=== PATIENT | male | born 1960 | race Caucasian/White ===

== ENCOUNTER 2020-11-12 11:15 | Emergency (ER) | payer OTHER, SELFPAY ==
[2020-11-12 11:25] VITALS: BP 173/107; PULSE 107; RESP 20; TEMP 36.6; O2SAT 100
--- NOTE | 2020-11-12 11:53 | ED.UPPEXIN ---
HPI - Extremity Injury (Upper) General Chief Complaint: Extremity Injury, Upper Stated Complaint: R WRIST INJURY Source: patient and RN notes reviewed Limitations: no limitations History of Present Illness HPI narrative: The right-handed patient, who has a history of psoriatic arthritis on Humira, presents with wrist pain. Patient has 1/2-week history of right, flexor wrist pain that is mild, worse with motion, better at rest. 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 No redness, known injury -there may be some slight swelling. Related Data Home Medications Medication Instructions Recorded Confirmed adalimumab 40 mg/0.8 mL See Rx Instructions SUB-Q .COMPLEX 05/21/20 05/21/20 subcutaneous syringe kit omeprazole 40 mg capsule,delayed 40 mg PO DAILY 05/21/20 05/21/20 release Allergies Allergy/AdvReac Type Severity Reaction Status Date / Time No Known Allergies Allergy Verified 05/21/20 14:04 Review of Systems Review of Systems: Narrative: General/Constitutional: No weight loss,fever Eyes: N0: Redness,discharge Ears/Nose/Throat: No: Epistaxis,ear discharge Respiratory: Denies: Hemoptysis Gastrointestinal: No Vomiting, Bleeding-rectal Skin: No Lumps, eruption Neurologic: No Focal Weakness,Sz Hematologic: Denies: Petechiae/Purpura Psychiatric: No: Suicida ideationl All Other Systems: Reviewed and Negative [facility] Surgical History Surgical History (Updated 05/21/20 @ 14:07 by Kayla Lauren, [facility]) Hx of cholecystectomy (~07/08/18) Family History Family History (Updated 06/25/18 @ 09:38 by DOCTOR UNKNOWN) Father Diabetes mellitus Family history of cardiovascular disease Mother Family history of dementia Family history of malignant melanoma Family history of malignant neoplasm of breast in first degree relative Other Cerebrovascular accident Family history of malignant neoplasm Family history of malignant neoplasm of breast Social History Social History Smoking status: Never smoker Alcohol intake: current Comments At time of signature, agree with nursing past medical, surgical, social and family history. There is no relevant family history pertinent to the presenting complaint Exam Narrative: Exam Narrative: General Appearance: Well appearing, , Conjunctiva clear Mouth/Throat: Normal appearing, Normal lips Neck: Supple Respiratory: Airway patent, No respiratory distress MS-wrist: Normal strength (mostly intact, limited flexion/extension by pain), Tenderness -with Tinel's; with mild decreased ROM, Scant flexor swelling Skin: Negative Ericka's; warm, Dry, Normal color Neurological: A&O x3, Normal affect Course Vital Signs Vital signs: Vital Signs Temperature 98 F 11/12/20 11:25 Pulse Rate 107 H 11/12/20 11:25 Respiratory Rate 11/12/20 11:25 Blood Pressure 173/107 H 11/12/20 11:25 Pulse Oximetry 100 11/12/20 11:25 Temperature 98 F 11/12/20 11:25 Pulse Rate 107 H 11/12/20 11:25 Respiratory Rate 11/12/20 11:25 Blood Pressure 173/107 H 11/12/20 11:25 Pulse Oximetry 100 11/12/20 11:25 Discharge Plan Discharge Clinical Impression: Tendinitis of right wrist Patient Disposition: Home, Self-Care Condition: Stable Instructions: Tendinitis (ED) Additional Instructions: Get and wear reinforced splint, especially at night Prescriptions: New acetaminophen-codeine 300-30 mg tablet 1 tablet PO HS PRN (Reason: pain) Qty: 10 RF: 0 prednisone 20 mg tablet 60 mg PO DAILY Qty: 15 RF: 0 tramadol 50 mg tablet 50 mg PO TID PRN (Reason: pain) Qty: 15 RF: 1 No Action omeprazole 40 mg capsule,delayed release(DR/EC) 40 mg PO DAILY RF: 0 Humira 40 mg/0.8 mL syringe kit See Rx Instructions SUB-Q .COMPLEX RF: 0 atorvastatin 10 mg tablet 10 mg PO DAILY Qty: 90 RF: 3 clonidin
== END 2020-11-12 12:02 | disposition home or self-care (01) ==
PROVIDERS: Emergency Provider Emergency Medicine; PCP Family Medicine
DX: M77.8 Other enthesopathies, not elsewhere classified (principal); L40.50 Arthropathic psoriasis, unspecified; E78.00 Pure hypercholesterolemia, unspecified; I10 Essential (primary) hypertension; M19.90 Unspecified osteoarthritis, unspecified site
CPT/HCPCS: 99213; G0463

== ENCOUNTER 2021-08-26 01:23 | Day surgery (SDC) | payer OTHER, SELFPAY ==
[2021-08-17 11:57] VITALS: BMI 26.5
[2021-08-26 08:14] VITALS: BP 155/99; PULSE 87; RESP 20; TEMP 36.1; O2SAT 100; BMI 25.2
[2021-08-26 08:20] LABS: Glucose Point of Care 100 mg/dl (65-105)
[2021-08-26] MEDS: LACTATED RINGERS 1,000 ML 150 ML IV CONT (08:30)
--- NOTE | 2021-08-26 08:47 | WPDGICN ---
Assessment and Plan Assessment and plan (1) Colon cancer screening: Code(s): Z12.11 - Encounter for screening for malignant neoplasm of colon Status: Acute Assessment and Plan: Patient presents for colon cancer screening by colonoscopy. He appears to be at average risk for colon polyps. Further recommendations will be given after endoscopy. GI Consult Note Consult date/time: 08/26/21 08:47 HPI: Jaiden Boggs is a 61 year old male Presents for screening colonoscopy. Patient's current weight appetite bowel movements are normal. He denies abdominal pain. He has had no bleeding. Family history is noncontributory. 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 This was dilated 2019. He continues to do well remains on PPI and anti-reflux measures. Review of Systems Review of Systems: All systems reviewed & are unremarkable except as noted in HPI and below PMFSH Past Medical History Medical History Arthritis DM type 2 causing complication Excessive thirst Prediabetes Type 1 diabetes mellitus maturity onset Surgical History Surgical History History of hernia repair 1989 Hx of cholecystectomy (~07/08/18) Family History Family History Father Diabetes mellitus Family history of cardiovascular disease Mother Family history of dementia Family history of malignant melanoma Family history of malignant neoplasm of breast in first degree relative Other Cerebrovascular accident Family history of malignant neoplasm Family history of malignant neoplasm of breast Hypertension Social History Social History (Updated 08/01/21 @ 10:15 by Kayla Lauren [facility]) Smoking status: Never smoker Alcohol intake: current Drinks per week: 4 Substance use: never Substance use type: does not use Living arrangements: with family Gender identity (if verbalized by the patient): Male Spiritual care concerns: No Meds Home Medications and Allergies Home Medications Medication Instructions Recorded Confirmed Type atorvastatin 10 mg tablet 10 mg PO DAILY #90 tablet 04/08/20 08/26/21 Rx clonidine HCl 0.1 mg tablet 0.1 mg PO BID #180 tablet 04/08/20 08/26/21 Rx spironolactone 25 mg tablet 25 mg PO BID #180 tablet 04/08/20 08/26/21 Rx omeprazole 40 mg capsule,delayed 40 mg PO DAILY 05/21/20 08/26/21 History release amlodipine 5 mg tablet See Rx Instructions .ROUTE 08/13/20 08/26/21 Rx .COMPLEX #90 tablet flash glucose scanning reader #1 ea 12/15/20 08/26/21 Rx flash glucose sensor #13 ea 12/15/20 08/26/21 Rx tadalafil 20 mg tablet 20 mg PO DAILY PRN #27 tablet 05/05/21 08/26/21 Rx guselkumab 100 mg/mL subcutaneous 100 mg SUBCUT ONCE 08/01/21 08/26/21 History auto-injector empagliflozin 12.5 mg-metformin 1 tablet PO BID #180 tablet 08/16/21 08/26/21 Rx 1,000 mg tablet aspirin [Adult Low Dose Aspirin] 81 mg PO DAILY 08/17/21 08/26/21 History Allergies Allergy/AdvReac Type Severity Reaction Status Date / Time No Known Allergies Allergy Verified 08/26/21 08:12 Vital Signs Vital Signs - 24 hr 08/26/21 08:14 Temperature 97.0 F L Pulse Rate 87 Respiratory Rate 20 Blood Pressure 155/99 H Pulse Oximetry 100 Exam Narrative: Physical exam reveals patient be alert. Vital signs stable. HEENT exam is unremarkable. Patient is anicteric. Lungs are clear to auscultation and percussion. Heart is without murmur or extra sounds. Abdominal exam bowel sounds are present soft nontender with no organomegaly. Digital external rectal exam is normal.
--- NOTE | 2021-08-26 08:52 | WPDANESEPPF ---
Anes - Initial Pre Proc Eval Procedure: Operation Date: 08/26/21 09:00 Proposed Procedures p Screening Colonoscopy - Cisco Goode MD Date/Time: 08/26/21 08:52 Surgeon: Cisco Goode MD Pre Op Diagnosis: neoplasm screening Patient Data Age: 61 Gender: M Height: 1.8 m Weight: 82.2 kg Last Vital Signs Temp 97.0 F L 08/26/21 08:14 Pulse 87 08/26/21 08:14 Resp 20 08/26/21 08:14 BP 155/99 H 08/26/21 08:14 Pulse Ox 100 08/26/21 08:14 Allergies Allergy/AdvReac Type Severity Reaction Status Date / Time No Known Allergies Allergy Verified 08/26/21 08:12 Home Medications Medication Instructions Recorded Confirmed Type atorvastatin 10 mg tablet 10 mg PO DAILY #90 tablet 04/08/20 08/26/21 Rx clonidine HCl 0.1 mg tablet 0.1 mg PO BID #180 tablet 04/08/20 08/26/21 Rx spironolactone 25 mg tablet 25 mg PO BID #180 tablet 04/08/20 08/26/21 Rx omeprazole 40 mg capsule,delayed 40 mg PO DAILY 05/21/20 08/26/21 History release amlodipine 5 mg tablet See Rx Instructions .ROUTE 08/13/20 08/26/21 Rx .COMPLEX #90 tablet flash glucose scanning reader #1 ea 12/15/20 08/26/21 Rx flash glucose sensor #13 ea 12/15/20 08/26/21 Rx tadalafil 20 mg tablet 20 mg PO DAILY PRN #27 tablet 05/05/21 08/26/21 Rx guselkumab 100 mg/mL subcutaneous 100 mg SUBCUT ONCE 08/01/21 08/26/21 History auto-injector empagliflozin 12.5 mg-metformin 1 tablet PO BID #180 tablet 08/16/21 08/26/21 Rx 1,000 mg tablet aspirin [Adult Low Dose Aspirin] 81 mg PO DAILY 08/17/21 08/26/21 History Laboratory Tests 08/26/21 08:18 POC Capillary Glucose 100 mg/dl mg/dl (65-105) Patient hx anesthesia problems: none Family hx anesthesia problems: none Results Review: All pre-operative results and documents have been reviewed as part of the pre-operative evaluation. [facility] Past Medical History Medical History Arthritis DM type 2 causing complication Excessive thirst Prediabetes Type 1 diabetes mellitus maturity onset Surgical History Surgical History History of hernia repair 1989 Hx of cholecystectomy (~07/08/18) Family History Family History Father Diabetes mellitus Family history of cardiovascular disease Mother Family history of dementia Family history of malignant melanoma Family history of malignant neoplasm of breast in first degree relative Other Cerebrovascular accident Family history of malignant neoplasm Family history of malignant neoplasm of breast Hypertension Social History Social History (Updated 08/01/21 @ 10:15 by Kayla Lauren [facility]) Smoking status: Never smoker Alcohol intake: current Drinks per week: 4 Substance use: never Substance use type: does not use Living arrangements: with family Gender identity (if verbalized by the patient): Male Spiritual care concerns: No Anes - Eval Final PreProcedure Day of Procedure 08/26/21 08:52 Patient weight: normal Heart: regular rate and rhythm Lungs: clear to auscultation Airway: Mallampati scale class II Neurological: alert and oriented Last oral intake: >/= 8 hours ASA classification: III Emergent: no Anesthetic plan: proceed Anesthesia type and monitoring: general GIVS and standard monitoring Results Review: All pre-operative results and documents have been reviewed as part of the pre-operative evaluation. Informed Consent: The patient's anesthetic plan and its attendant risks and benefits were discussed with the patient/family/POA. Questions were solicited and answers provided to the satisfaction of the patient/family/POA.
[2021-08-26 09:21] VITALS: BP 115/78; PULSE 72; RESP 17; O2SAT 99
[2021-08-26 09:31] VITALS: BP 123/85; PULSE 72; RESP 15; O2SAT 100
[2021-08-26 09:41] VITALS: BP 144/102; PULSE 79; RESP 27; O2SAT 100
== END 2021-08-26 09:55 | disposition home or self-care (01) ==
PROVIDERS: PCP Family Medicine; Visit Provider Internal Medicine Gastroenterology
PROC: 0DJD8ZZ Inspection of Lower Intestinal Tract, Via Natural or Artificial Opening Endoscopic (ICD-10-PCS; CPT 45378; principal; 2021-08-26 09:00)
DX: Z12.11 Encounter for screening for malignant neoplasm of colon (principal); K64.8 Other hemorrhoids; Z79.82 Long term (current) use of aspirin; M19.90 Unspecified osteoarthritis, unspecified site; E13.9 Other specified diabetes mellitus without complications; Z90.49 Acquired absence of other specified parts of digestive tract
CPT/HCPCS: 45378; 82948; J2704; J7120